=== PATIENT | female | born 1950 | race African-American/Black ===

== ENCOUNTER 2016-11-19 | Inpatient (IN) | payer MEDICARE ==
[~2016-11-19] MED LIST: ACETAMINOPHEN PO; ARISTOCORT A 0.15 GM TOP; CIPRO PO; DIAZEPAM PO; EFFEXOR XR PO; GLUCOTROL PO; LASIX PO; LIPITOR PO; MIRALAX255 GM PO; MOEXIPRIL HCL15 MG PO; SENNA S TABLET1 TAB PO; SEROQUEL PO; ZANTAC PO
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
--- NOTE | ~2016-11-19 | DS ---
Unit #: [id number] #: [id number] Patient: JANEY HARGROVE [id number] [place] [address] [id number] I MR#: [id number] NAME: JANEY HARGROVE ROOM: P123 Age: 66 Sex: F Admission Date: 11/19/2016 : 1950 Discharge Date: 11/20/2016 Attending Physician: Jesse Blanco M.D. Primary Care Physician: Deb Marcos M.D. DISCHARGE SUMMARY REASON FOR ADMISSION Ms. Hargrove is a 66-year-old woman with a history of depression and unknown psychosis who presented reporting increasing confusion and psychosis. Family reported that she had been acting erratically in the home and this behavior had started abruptly 3 days ago. She was admitted for further workup. DIAGNOSTIC STUDIES LABORATORY DATA: Please see hospital chart. HOSPITAL COURSE Patient was admitted and placed on psychosis precautions. Due to high falls risk she was placed originally on two-to-one precautions followed by one-to-one. Baseline laboratories were obtained which demonstrated the probable presence of a urinary tract infection and after she was seen by our medical records manager she was transferred to [facility] for medical evaluation. At that facility, it was decided that she required to be admitted to a medical floor for treatment, and she was discharged from this facility. 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 Depressive disorder NOS. AXIS II: No diagnosis. AXIS III: Hypertension Hyperlipidemia. Degenerative disc disease. Diabetes. INSTRUCTIONS TO PATIENT Patient followup with attending physician at [facility]. DISCHARGE MEDICATIONS None. CONDITION ON DISCHARGE Decompensated. PROGNOSIS Good. DIET AND ACTIVITY Per attending physician. Unit #: [id number] #: [id number] Patient: JANEY HARGROVE Dictated by... Jesse Blanco M.D. [facility]/dzh TD: 11/20/2016 22:01 JOB #: [id number] DISCHARGE SUMMARY Page 1 of 1 X Jesse Blanco MD X DISCHARGE SUMMARY
--- NOTE | ~2016-11-19 | HP ---
Unit #: [id number] #: [id number] Patient: JANEY BENTLEY [id number] [facility] [address] [place] [address] [id number] I MR#: [id number] NAME: JANEY BENTLEY ROOM: P123 Age: 66 Sex: F Admission Date: 11/19/2016 : 1950 Attending Physician: Jesse Blanco M.D. Admitting Physician: Jesse Blanco M.D. Primary Care Physician: Deb Marcos M.D. HISTORY AND PHYSICAL DATE OF ADMISSION 11/19/2016 NOTE Janey is a 66 year old admitted to [address] [place] [address]. She was admitted and discharged within the first 24 hours. She was not seen for an H & P. Dictated by... Jolene James P.A.-C. for Dario Trujillo/riley TD: 11/19/2016 20:41 JOB #: [id number] HISTORY AND PHYSICAL Page 1 of X Jolene James HISTORY AND PHYSICAL
[2016-11-19] MEDS ORDERED: DESYREL100 MG PO (23:08)
[2016-11-19] MEDS ORDERED: SEROQUEL300 M1 PO (23:09)
[2016-11-19] MEDS ORDERED: GLIPIZIDE10 MG PO (23:10)
[2016-11-19] MEDS ORDERED: LIPITOR40 MG PO (23:10)
[2016-11-19] MEDS ORDERED: MAALOX MAXIMUM355 ML PO (23:12)
[2016-11-19] MEDS ORDERED: ACETAMINOPHEN PO (23:14)
[2016-11-19] MEDS ORDERED: MILK OF MAGNESIA PO (23:14)
== END 2016-11-20 00:02 | disposition short-term general hospital (02) | DRG 885 ==
LOC: P1S 01:51
DX: F23 Brief psychotic disorder (principal); E11.8 Type 2 diabetes mellitus with unspecified complications; I10 Essential (primary) hypertension; F32.9 Major depressive disorder, single episode, unspecified; E78.5 Hyperlipidemia, unspecified; Z88.0 Allergy status to penicillin; Z88.1 Allergy status to other antibiotic agents; K21.9 Gastro-esophageal reflux disease without esophagitis; E78.00 Pure hypercholesterolemia, unspecified
CPT/HCPCS: 82947; J3486

== ENCOUNTER 2016-11-19 19:56 | Inpatient (IN) | payer MEDICARE ==
--- NOTE | ~2016-11-19 | CT71 ---
[facility] A Service of [facility] RADIOLOGY TEXT RESULTS PATIENT: JANEY BENTLEY LOCATION: [facility] 555 : [birth year] UNIT #: [id number] AGE: [address]: Angela Alfonso MD SEX: F ORDER DR: [id number] [facility] [address] [place], [place] [address] [id number] I MR#: [id number] Acc #: [id number] NAME: JANEY BENTLEY. : 1950 SEX: F STUDY DATE/TIME: 11/19/2016 22:44 UNIT: [facility] ROOM: [facility] STUDY DESCRIPTION: CT Head Wo Contrast Attending Physician: Angela Alfonso M.D. Referring Physician: Deb Marcos M.D. Ordering Physician: Tom Saab M.D. Primary Care Physician: Deb Marcos M.D. MEDICAL IMAGING REPORT This report is preliminary unless electronic signature is present EXAM CT head without contrast INDICATION Confusion and head pain today. PROCEDURE Unenhanced CT of the head. This CT exam was performed with one or more of the following radiation dose reduction techniques: Automatic exposure control, adjustment of mA and/or kV according to patient size and iterative reconstruction. COMPARISON 08/04/2007 FINDINGS There is no acute hemorrhage, abnormal mass effect, extraaxial fluid collection or hydrocephalus. Paranasal sinuses, mastoid air cells are clear. IMPRESSION No acute intracranial findings. Dictated by... Cristhian Pozo M.D. THIS IS AN ELECTRONICALLY VERIFIED REPORT Cristhian Pozo M.D. at 11/20/2016 9:57 PM KERI/maude TD: 11/20/2016 11:06 JOB #: [id number] [facility] A Service [facility] RADIOLOGY TEXT RESULTS PATIENT: JANEY BENTLEY LOCATION: [facility] 555 : [birth year] UNIT #: [id number] AGE: [address]: Angela Alfonso MD SEX: F ORDER DR: MEDICAL IMAGING REPORT Page 1 of 1 COPY
--- NOTE | ~2016-11-19 | DS ---
Unit #: [id number] #: [id number] Patient: JANEY HARGROVE [id number] [address] [address] [id number] I MR#: [id number] NAME: JANEY HARGROVE ROOM: 555 Age: 66 Sex: F Admission Date: 11/19/2016 : 1950 Discharge Date: 11/26/2016 Attending Physician: Rufina Pérez M.D. Referring Physician: Deb Marcos M.D. Primary Care Physician: Deb Marcos M.D. DISCHARGE SUMMARY PRIMARY CARE PROVIDER Deb Marcos M.D. PRINCIPAL DIAGNOSES 1. Escherichia coli urinary tract infection. 2. Toxic metabolic encephalopathy. 3. Acute on chronic psychosis secondary to urinary tract infection. 4. History of stroke with right hemiplegia. 5. Hyperlipidemia. 6. Diabetes mellitus type 2 with hemoglobin A1c of 6.1. 7. Degenerative joint disease. 8. Obesity morbid. 9. Vitamin B12 deficiency with a vitamin B12 level of 210. 10. Ascending aortic aneurysm measuring 4.5 cm. 11. Possible pulmonary hypertension. MISSION MANAGER Dr. Ohara, Psychiatry. PROCEDURES 1. Chest x-ray on 11/19/2016 with no acute findings. 2. CT head without contrast on 11/19/2016 with no acute intracranial abnormality. 3. CT of the chest without contrast on 11/22/2016 with ascending aortic aneurysm measuring 4.5 cm, enlargement of pulmonary artery is noted. CLINICAL HISTORY AND HOSPITAL COURSE Ms. Hargrove is a 66-year-old female, who was transferred [facility] after she was increasingly confused, combative, and falling. In the emergency department, she was found to have urinary tract infection, was admitted to our facility. The patient was placed on empiric antibiotics. Urine culture ultimately revealed E. coli. The patient has been changed to Macrobid. Her mental status has improved with treatment of her UTI. We will complete a course of antibiotics. Dr. Ohara has been consulted, because the patient became significantly psychotic with disorganized thinking. She required several doses of Cogentin and Haldol in addition to scheduled Vistaril and Seroquel. However, today her mental status is much improved. The patient was re-evaluated by Dr. Ohara. He does not feel she requires transfer to [facility] at this time. I spoke with the patient's daughter Unit #: [id number] #: [id number] Patient: JANEY HARGROVE and we are going to discharge her home on medications as outlined below. The patient was also seen by physical therapy and she is at her baseline. She is impulsive and seems forgetful with her physical limitations, but again she is monitored by her daughters often. DISCHARGE CONDITION Stable. DISCHARGE STATUS Discharged to home. DISCHARGE MEDICATIONS Vistaril 25 mg p.o. b.i.d., Macrobid 100 mg p.o. b.i.d. for another 3 days, Lipitor 40 mg at bedtime, Tylenol 650 mg p.o. q.4 hours p.r.n. for pain, Maalox 30 mL p.o. q.6 hours p.r.n. for tummy upset, trazodone 100 mg at bedtime, Seroquel 300 mg at bedtime, metoprolol tartrate 25 mg b.i.d. with one refill given, glipizide 10 mg b.i.d., vitamin B12 of 1000 mcg p.o. daily, which can be purchased over the counter. DISCHARGE INSTRUCTIONS The patient was instructed to follow heart healthy constant carb diet. She will continue Accu-Cheks a.c. and h.s. at home. She can increase her activity as tolerated. She is to use a walker at all times. FOLLOWUP The patient will follow up with her primary care provider in 1 to 2 weeks. Time spent on discharge 42 minutes. Dictated by... Rufina Pérez M.D. CORTNEY/luis TD: 11/28/2016 04:05 JOB #: [id number] DISCHARGE SUMMARY Page 1 of 1 X Rufina Pérez MD DISCHARGE SUMMARY
--- NOTE | ~2016-11-19 | CT57 ---
[facility] A Service of [facility] RADIOLOGY TEXT RESULTS PATIENT: JANEY BENTLEY LOCATION: B 555-01 : [birth year] UNIT #: [id number] AGE: [address]: Angela Alfonso MD SEX: F ORDER DR: [id number] [facility] [address] [place], [place] [address] [id number] I MR#: [id number] #: [id number] NAME: JANEY BENTLEY : 1950 SEX: F STUDY DATE/TIME: 11/22/2016 19:15 UNIT: C5B ROOM: [facility] STUDY DESCRIPTION: CT Chest Wo Cont Attending Physician: Angela Alfonso M.D. Referring Physician: Deb Marcos M.D. Ordering Physician: Basil Duncan M.D. Primary Care Physician: Deb Marcos M.D. MEDICAL IMAGING REPORT This report is preliminary unless electronic signature is present EXAM CT chest without contrast 11/22/2016 1915 hours CLINICAL HISTORY 66-year-old woman with cough, shortness of air for 3 days, chest pain. Possible aspiration pneumonia. COMPARISON Chest CT 09/11/2006 and chest x-ray 11/19/2016. TECHNIQUE Helical noncontrasted images were obtained from the lung apices through the adrenal glands. Sagittal and coronal reconstructions were performed. Total exam DLP 765 mGy-cm. This CT examination was performed with one or more of the following radiation dose reduction techniques: automatic exposure control, adjustment of mA and/or kV according to patient size, and iterative reconstruction. FINDINGS Images through the thoracic inlet demonstrate no thyroid mass or supraclavicular adenopathy. There is artifact related to the patient's right arm which is folded over the right upper chest likely from flexion contracture. There is ectasia of the ascending aorta measuring 4.5 cm previously 3.7 cm on 09/11/2006. Pulmonary arteries are enlarged which can be indicative of underlying pulmonary arterial hypertension. The descending thoracic aorta is mildly aneurysmal measuring 3.1 cm. There is no pathologic mediastinal, hilar or axillary adenopathy. Lung window images are degraded by respiratory motion artifact. There is no definite pneumonia or edema. There is a nodule in the right lower lobe on image 29. This is unchanged from 09/11/2006 and therefore likely benign. No effusions are seen. [facility] A Service of [facility] RADIOLOGY TEXT RESULTS PATIENT: JANEY BENTLEY LOCATION: [place] [address] : [birth year] UNIT #: [id number] AGE: [address]: Angela Alfonso MD SEX: F ORDER DR: Images through the upper abdomen demonstrate postoperative change of Lap-Band. There is no acute finding in the abdomen. IMPRESSION 1. The study is limited by respiratory motion and artifact from patient's arm over the right chest likely due to flexion contracture. 2. There is an ascending aortic aneurysm measuring up to 4.5 cm. The aorta was only mildly ectatic measuring 3.6 cm on 09/11/2006. Descending thoracic aorta is minimally aneurysmal measuring 3.1 cm. 3. Enlargement of the pulmonary arteries noted which can be associated with pulmonary arterial hypertension. 4. Respiratory motion degrades the images through the lungs. There is a stable vague nodule in the right lower lobe unchanged from 2006 and therefore benign. There is no evidence of pneumonia, edema or pleural effusion. Dictated by... Dominique Dumont M.D. THIS IS AN ELECTRONICALLY VERIFIED REPORT Dominique Dumont M.D. at 11/24/2016 9:03 AM FLORA/sal TD: 11/24/2016 06:50 JOB #: [id number] MEDICAL IMAGING REPORT Page 1 of 1 COPY
--- NOTE | ~2016-11-19 | CO ---
Unit #: [id number] #: [id number] Patient: JANEY HARGROVE [id number] [address] [place], [place] [address] [id number] I MR#: [id number] NAME: JANEY HARGROVE ROOM: 555 Age: 66 Sex: F Admission Date: 11/19/2016 : 1950 Attending Physician: Angela Alfonso M.D. Primary Care Physician: Deb Marcos M.D. Consultation Date: 11/20/2016 CONSULTATION REPORT REASON FOR CONSULTATION Psychosis, confusion. HISTORY OF PRESENT ILLNESS Ms. Janey Hargrove is a 66-year-old female, seen in room 555 on 11/20/2016 at [facility]. The patient was transferred from [facility] due to acute confusion. The patient was admitted on 11/19/2016 and transferred to [facility] for psychiatric stabilization. The patient has a history of previous admission in 2012 and diagnosed with psychosis not otherwise specified and depressive disorder. The patient diagnosed with UTI, toxic metabolic encephalopathy, moderately obese, agitated needing one-to-one monitoring, unable to provide a coherent information; needing Haldol 5 mg, Cogentin 1 mg, Ativan 1 mg IM. The patient's vital signs; temperature 98.6, pulse 85, respirations 16, blood pressure 104/76, and oxygen saturation 96%. PAST PSYCHIATRIC HISTORY Remarkable for history of previous treatment with psychotic episode in 2012, treated at [facility]. MEDICAL HISTORY History of seasonal allergy, degenerative joint disease, hypertension, AODM, hyperlipidemia, hysterectomy, Lap-Band, obesity. ALLERGIES Ibuprofen, aspirin, penicillin. MEDICATIONS At [facility], the patient was on Seroquel 300 mg at bedtime, Lipitor 40 mg at bedtime, glipizide 10 mg b.i.d., Maalox, trazodone 100 mg at bedtime. FAMILY HISTORY AND SOCIAL HISTORY Family history unavailable at this time. No known history of abuse. No history of any substance abuse. REVIEW OF SYSTEMS Complete review of system is unremarkable. MENTAL STATUS EXAMINATION General appearance; the patient is moderately obese, dressed casually in hospital attire, seemed somewhat anxious, nervous, agitated. Attention span and concentration, poor. Speech, poor articulation. Orientation in Unit #: [id number] #: [id number] Patient: JANEY HARGROVE self. Mood and affect, labile. Thought process, circumstantial. Thought content; guarded, paranoid, agitation, confusion. Recent and remote memory, poor. Language, unable to assess. Fund of knowledge, unable to assess. Insight and judgment, impaired. DIAGNOSES Psychiatric: Delirium, F05; psychosis, not otherwise specified, F29.0. Secondary diagnosis: Please refer to H and P. Stressors: Psychosocial stressor. ASSESSMENT/PLAN 1. Supportive psychotherapy and psychoeducation provided to the patient. 2. Educated about benefits and side effects of medication and course and prognosis of illness. 3. Advised to continue with current medication Seroquel 300 mg at bedtime, added haloperidol 2 mg b.i.d., Vistaril 25 mg t.i.d. We will continue to follow. If needed, consider further adjustment of medication. Please feel free to call if any questions, telephone #[phone]. Dictated by... Adin Ohara M.D. JAIME/luis TD: 11/21/2016 15:26 JOB #: [id number] CONSULTATION REPORT Page 1 of 1 X Adin Ohara MD CONSULTATION REPORT
--- NOTE | ~2016-11-19 | EKG ---
PATIENT: JANEY BENTLEY UNIT #: [id number] Ventricular Rate: 101 BPM Atrial Rate: 101 BPM P-R Interval: 134 ms QRS Duration: 86 ms Q-T Interval: 332 ms QTC Calculation(Bezet): 430 ms P [place]: 70 degrees Calculated R [place]: -27 degrees Calculated T [place]: 5 degrees Diagnosis Line: Sinus tachycardia with occasional Premature Diagnosis Line: ventricular complexes Diagnosis Line: Possible Left atrial enlargement Diagnosis Line: Left ventricular hypertrophy Diagnosis Line: Cannot rule out Septal infarct , age undetermined Diagnosis Line: ST and T wave abnormality, consider inferior Diagnosis Line: ischemia Diagnosis Line: Abnormal ECG Diagnosis Line: No previous ECGs available Diagnosis Line: Confirmed by SIXTO ANDERSON MD ([id number]) on Diagnosis Line: 11/21/2016 10:51:40 AM INTERPRETING MD: JUSTIN LANCE
--- NOTE | ~2016-11-19 | CO ---
Unit #: [id number] #: [id number] Patient: JANEY HARGROVE [id number] [place] [address] [facility]. [place], [place] [address] [id number] I MR#: [id number] NAME: JANEY HARGROVE ROOM: 555 Age: 66 Sex: F Admission Date: 11/19/2016 : 1950 Attending Physician: Rufina Pérez M.D. Primary Care Physician: Deb Marcos M.D. Consultation Date: 11/24/2016 CONSULTATION REPORT REASON FOR CONSULTATION Followup. DISCUSSION Ms. Dominique Hargrove is a 66-year-old female, seen in room 555, bed 1 on 11/24/2016 at [facility]. The patient is moderately obese, dressed casually, lying comfortably in a propped up position. The patient still having disorganized thought process, but no agitation. Alert and awake. Vital signs; temperature 98.0, pulse 71, respirations 18, blood pressure 138/77, and oxygen saturation 100%. REVIEW OF SYSTEMS Complete review of systems unremarkable. MENTAL STATUS EXAMINATION General appearance, the patient dressed casually. Attention span and concentration, poor. Speech, poor articulation. Orientation, unable to assess. Mood and affect, labile. Thought process, circumstantial. Thought content; guarded, but denied any thoughts of harming self or others. Recent and remote memory, poor. Language, poor. Fund of knowledge, poor. Insight and judgment, impaired. DIAGNOSES Psychiatric: 1. Psychosis, not otherwise specified, F29.0. 2. Rule out major neurocognitive disorder secondary to Alzheimer disease with behavioral disturbances, F02.81. ASSESSMENT AND PLAN Supportive psychotherapy and psychoeducation provided to the patient, but the patient unable to comprehend much. Advised to continue with current combination of medication. If needed, consider further adjustment of medication. Please feel free to call if any questions, telephone [phone]. Dictated by... Adin Ohara M.D. JAIME/luis TD: 11/24/2016 17:47 JOB #: [id number] Unit #: [id number] #: [id number] Patient: JANEY HARGROVE CONSULTATION REPORT Page 1 of 1 X Adin Ohara MD CONSULTATION REPORT
--- NOTE | ~2016-11-19 | CO ---
Unit #: [id number] #: [id number] Patient: JANEY HARGROVE [id number] [address] [place], [place] [address] [id number] I MR#: [id number] NAME: JANEY HARGROVE ROOM: 555 Age: 66 Sex: F Admission Date: 11/19/2016 : 1950 Attending Physician: Rufina Pérez M.D. Primary Care Physician: Deb Marcos M.D. Consultation Date: 11/25/2016 CONSULTATION REPORT DISCUSSION Janey Hargrove is a 66-year-old female, seen on 11/25/2016. The patient seen in room 555, bed 1 on 11/25/2016. The patient dressed casually, sitting comfortably in chair, eating her breakfast. The patient was able to answer questions, but speech disorganized. Guarded, paranoid, poor memory, but no agitation or thoughts of harming self or others. The patient's blood glucose was 107. The patient's vital signs; temperature 99.5, pulse 73, respirations 20, blood pressure 133/105, and oxygen saturation 96%. REVIEW OF SYSTEMS Complete review of system is unremarkable except as mentioned above. MENTAL STATUS EXAMINATION General appearance; the patient is moderately obese, dressed casually in hospital attire, sitting comfortably in chair. Attention span and concentration, poor. Speech, poor articulation. Orientation in self. Mood and affect, labile. Thought process, circumstantial. Thought content, guarded and paranoid, but denied any thoughts of harming self or others. Recent and remote memory, fair to slightly impaired. Language, fair. Fund of knowledge, poor. Insight and judgment, impaired. DIAGNOSES Psychiatric: Psychosis, not otherwise specified, F29.0; major neurocognitive disorder secondary to Alzheimer disease with behavioral disturbances, F02.81. ASSESSMENT AND PLAN 1. Supportive psychotherapy and psychoeducation provided to the patient. 2. Advised to continue with current medication. The patient does not require any inpatient psychiatric admission at this time, but recommending to follow up with home situation with the transition social worker, Ms. Houston is currently working to get some more information from family. Please feel free to call if any questions, telephone #[phone]. Continue with current medication. Dictated by... Dario Schneider/luis TD: 11/25/2016 17:35 JOB #: [id number] Unit #: [id number] #: [id number] Patient: JANEY HARGROVE CONSULTATION REPORT Page 1 of 1 X Adin Ohara MD X CONSULTATION REPORT
--- NOTE | ~2016-11-19 | CR72 ---
[facility] A Service of [facility] RADIOLOGY TEXT RESULTS PATIENT: JANEY BENTLEY LOCATION: [facility] 555-01 : [birth year] UNIT #: [id number] AGE: [address]: Angela Alfonso MD SEX: F ORDER DR: [id number] [facility] [address] [place], [place] [address] [id number] I MR#: [id number] Acc #: [id number] NAME: JANEY BENTLEY : 1950 SEX: F STUDY DATE/TIME: 11/19/2016 21:46 UNIT: [facility] ROOM: [facility] STUDY DESCRIPTION: CR Chest Single View Portable Attending Physician: Angela Alfonso M.D. Referring Physician: Deb Marcos M.D. Ordering Physician: Tom Saab M.D. Primary Care Physician: Deb Marcos M.D. MEDICAL IMAGING REPORT This report is preliminary unless electronic signature is present EXAM Portable chest 11/19/2016 HISTORY 66-year-old female with altered mental status, confusion, and shortness of air beginning today. COMPARISON Chest 12/11/2009 FINDINGS Frontal chest demonstrates clear lungs. No pleural effusion or pneumothorax. Heart size is upper limits. Mediastinum and pulmonary vasculature unremarkable. Gastric lap-band. IMPRESSION No acute cardiopulmonary findings. Dictated by... Rodrigo Mcknight M.D. THIS IS AN ELECTRONICALLY VERIFIED REPORT Rodrigo Mcknight M.D. at 11/20/2016 4:14 PM EDMOND/theodora TD: 11/20/2016 10:43 JOB #: [id number] MEDICAL IMAGING REPORT Page 1 of 1 COPY
--- NOTE | ~2016-11-19 | EKG ---
PATIENT: JANEY BENTLEY UNIT #: [id number] Ventricular Rate: 116 BPM Atrial Rate: 116 BPM P-R Interval: 142 ms QRS Duration: 82 ms Q-T Interval: 350 ms QTC Calculation(Bezet): 486 ms P [place]: 60 degrees Calculated R [place]: -19 degrees Calculated T [place]: 32 degrees Diagnosis Line: Sinus tachycardia with Premature supraventricular Diagnosis Line: complexes Diagnosis Line: Minimal voltage criteria for LVH, may be normal Diagnosis Line: variant Diagnosis Line: Borderline ECG Diagnosis Line: No previous ECGs available Diagnosis Line: Confirmed by SIXTO ANDERSON MD ([id number]) on Diagnosis Line: 11/21/2016 10:51:52 AM INTERPRETING MD: JSUTIN LANCE
--- NOTE | ~2016-11-19 | CO ---
Unit #: [id number] #: [id number] Patient: JANEY HARGROVE [id number] [address] [place], [place] [address] [id number] I MR#: [id number] NAME: JANEY HARGROVE ROOM: 555 Age: 66 Sex: F Admission Date: 11/19/2016 : 1950 Attending Physician: Rufina Pérez M.D. Primary Care Physician: Deb Marcos M.D. Consultation Date: 11/26/2016 CONSULTATION REPORT REASON FOR CONSULTATION Followup. DISCUSSION Ms. Janey Hargrove is a 66-year-old female, seen in room 555, bed 1 on 11/26/2016. The patient moderately obese, dressed casually, sitting comfortably in chair, pleasant, cooperative, able to answer questions, but still noticed to be having problem with speech and behavior. Thought process, paranoia. Problem with memory. The patient's vital signs; temperature 98.1, pulse 65, respirations 18, blood pressure 144/90, and oxygen saturation 99%. The patient was evaluated by Our and recommended to follow up on the outpatient basis. REVIEW OF SYSTEMS Complete review of systems is unremarkable. MENTAL STATUS EXAMINATION General appearance; the patient is moderately obese, dressed casually in hospital attire. Attention span and concentration, fair. Oriented in self and place. Mood and affect; labile, sad, dysphoric. Thought process, circumstantial. Thought content, guarded and paranoid. Recent and remote memory, poor. Language, intact. Fund of knowledge, fair to poor. Insight and judgment, fair to slightly impaired. DIAGNOSES 1. Major neurocognitive disorder secondary to Alzheimer disease with behavioral disturbances, F02.81. 2. Psychosis, not otherwise specified, F29.0. 3. Rule out schizophrenia, F20.0. ASSESSMENT/PLAN 1. Supportive psychotherapy and psychoeducation provided to the patient. 2. Educated about benefits and side effects of medication and course and prognosis of illness. 3. Recommending the patient to follow up in an outpatient program upon discharge. Please feel free to call if any questions, telephone #[phone]. Dictated by... Adin Ohara M.D. JAIME/luis IVY: 11/26/2016 14:57 Unit #: [id number] #: [id number] Patient: JANEY HARGROVE TD: 11/26/2016 15:50 JOB #: [id number] CONSULTATION REPORT Page 1 of 1 X Adin Ohara MD CONSULTATION REPORT
--- NOTE | ~2016-11-19 | CO ---
Unit #: [id number] #: [id number] Patient: JANEY HARGROVE [id number] [address] [place], [place] [address] [id number] I MR#: [id number] NAME: JANEY HARGROVE ROOM: 555 Age: 66 Sex: F Admission Date: 11/19/2016 : 1950 Attending Physician: Angela Alfonso M.D. Primary Care Physician: Deb Marcos M.D. Consultation Date: 11/23/2016 CONSULTATION REPORT REASON FOR CONSULTATION Followup. DISCUSSION Ms. Dominique Hargrove is a 66-year-old female, seen in room 555, bed 1 on 11/23/2016. The patient dressed casually in hospital attire, lying comfortably in bed. The patient is showing some improvement, decrease in agitation, improved mood, but still somewhat guarded. The patient is still having periods of aggression such as a kicking staff, pulling IV monitor. The patient's vital signs; temperature 98.5, pulse 99, respirations 26, blood pressure 158/88, and oxygen saturation 98%. The patient was in delirium state. At the time of admission, diagnosed with UTI, toxic metabolic encephalopathy. The patient is tolerating medication fairly well. Currently, on Seroquel 300 mg at bedtime, Haldol p.r.n., Desyrel 100 mg at bedtime. No side effects from medication. REVIEW OF SYSTEMS Complete review of systems is unremarkable except as mentioned above. MENTAL STATUS EXAMINATION VITAL SIGNS: Temperature 98.5, pulse 99, respirations 26, blood pressure 158/88, and oxygen saturation 98%. GENERAL APPEARANCE: The patient dressed casually, lying comfortably in bed. Attention span and concentration, poor. Speech, disorganized. Orientation in self. Mood and affect, labile. Thought process, circumstantial. Thought content, guarded, paranoid, mood lability. Recent and remote memory, poor. Language poor. Fund of knowledge, poor. Insight and judgment, impaired. DIAGNOSES Psychiatric: Delirium, F05; psychosis, not otherwise specified, F29.0; diagnosed with toxic metabolic encephalopathy. ASSESSMENT AND PLAN 1. Supportive psychotherapy and psychoeducation provided to the patient. 2. The patient unable to comprehended at this time. Advised to continue with current treatment and medication. If needed, consider further adjustment of medication. Please feel free to call if any questions, telephone #[phone]. Dictated by... Adin Ohara M.D. Unit #: [id number] #: [id number] Patient: JANEY HARGROVE JAIME/luis TD: 11/23/2016 14:29 JOB #: [id number] CONSULTATION REPORT Page 1 of 1 X Adin Ohara MD X CONSULTATION REPORT
--- NOTE | ~2016-11-19 | HP ---
Unit #: [id number] #: [id number] Patient: JANEY BENTLEY [id number] [address] [place], [place] [address] [id number] MR#: [id number] NAME: JANEY BENTLEY ROOM: 66566 Age: 66 Sex: F Admission Date: 11/19/2016 : 1950 Attending Physician: Kristi Salinas M.D. Referring Physician: Deb Marcos M.D. Primary Care Physician: Deb Marcos M.D. HISTORY AND PHYSICAL CHIEF COMPLAINT UTI and toxic metabolic encephalopathy. HISTORY This pleasant 66-year-old female with AODM, hyperlipidemia, history of depression with psychosis, was transferred to this facility from [facility] for altered mental status. Unfortunately details of the past 24 hours are unknown. The patient was admitted to [facility] within the past 24 hours from an unknown facility. Apparently this was for psychosis. [facility] she was confused, combative, fell x2 with increasing psychosis per their records. She therefore was sent to this facility for medical clearance and was found to have a urinary tract infection. She is awake, alert but does not speak to me. She does nod her head yes and no to some of my questions. In the ER she was given a g of Rocephin. She does nod that she has been experiencing dysuria. PAST MEDICAL HISTORY 1. Admission to [facility] in 2012 for depression and psychotic disorder with paranoia. 2. Seasonal allergies. 3. DJD. 4. History of hypertension, 5. AODM. 6. Hyperlipidemia. 7. Hysterectomy. 8. Lap band. ALLERGIES Ibuprofen, aspirin, and penicillin. HOME MEDICATIONS I have an MAR sent from [facility], which makes mention of trazodone 100 mg q.h.s.; Seroquel 300 mg q.h.s.; Lipitor 40 mg q.h.s.; glipizide 10 mg b.i.d.; Maalox; p.r.n. Tylenol; MOM. FAMILY HISTORY Unknown. There is some mention in old records that there is psychiatric disorder in the family. SOCIAL HISTORY Also unknown. Unit #: [id number] #: [id number] Patient: JANEY BENTLEY REVIEW OF SYSTEMS Impossible to obtain, as patient really will not answer my questions. PHYSICAL EXAMINATION GENERAL: Pleasant, obese, 66-year-old female who was awake and alert, nods her head yes and no to selected questions. VITAL SIGNS: Temperature 98.6, pulse 97, respirations 26, blood pressure 156/106, O2 saturations 96% on room air. HEENT: Eyes - slight asymmetry of the pupils, status post bilateral cataract extraction, extraocular muscles are full. Pharynx - patient refuses to open her mouth. NECK: Without adenopathy or thyromegaly. CHEST: Clear. CARDIAC: Normal S1 and S2. Very soft systolic murmur. ABDOMEN: Bowel sounds are present. Minimal abdominal tenderness. No definite hepatosplenomegaly or masses. EXTREMITIES: Minimal edema. Pedal pulses are diminished. No ulcers on the feet. NEUROLOGIC: Patient is awake, alert and she nods her head to selected questions. I believe her cranial nerves are intact except there is a very slight asymmetry of the pupils. She appears to have flexion contraction of the right upper extremity with spasticity, and nods her head yes that she did have a previous CVA. DIAGNOSTIC STUDIES LABORATORY STUDIES: Hematocrit is 39.1, normal white count and platelet count. SMA 12 - glucose 118. Urinalysis - positive leukocyte esterase and nitrates with 50 to 100 white cells, 4+ bacteria. Only a few squamous cells seen. IMAGING STUDIES: Head CT - no acute disease. Chest x-ray - no acute disease. CARDIOLOGY STUDIES: EKG - sinus tachycardia rate 101 with APCs, occasional PVC, nonspecific ST wave abnormalities, which in large part is due to artifact. ASSESSMENT 1. UTI with toxic metabolic encephalopathy. 2. Admission to [facility] within the past 24 hours for psychosis, details are unknown. 3. Questionable old CVA on exam as patient does has spasticity and flexion contractions of the right arm, she does nod her head that she did have an old stroke. Head CT shows no acute disease. 4. AODM. 5. Hyperlipidemia. PLANS 1. Antibiotics pending cultures. 2. IV fluids. 3. Change glipizide to sliding scale insulin. 4. DVT prophylaxis. 5. Check B12 and thyroid function test. 6. Psychiatry to see in the morning. Unit #: [id number] #: [id number] Patient: JANEY BENTLEY Dictated by Kristi Salinas M.D. AML/ts TD: 11/20/2016 04:58 JOB #: [id number] HISTORY AND PHYSICAL Page 1 of 1 X Kristi Salinas MD X HISTORY AND PHYSICAL
--- NOTE | ~2016-11-19 | CO ---
Unit #: [id number] #: [id number] Patient: JANEY HARGROVE [id number] [facility] [address] [facility]. [place], [place] [address] [id number] MR#: [id number] NAME: JANEY HARGROVE ROOM: 555 Age: 66 Sex: F Admission Date: 11/19/2016 : 1950 Attending Physician: Angela Alfonso M.D. Primary Care Physician: Deb Marcos M.D. Consultation Date: 11/21/2016 CONSULTATION REPORT DISCUSSION Janey Hargrove is a 66-year-old female, seen in room 555, bed 1, on 11/21/2016 at [facility]. The patient is compliant with medication, somewhat sleepy, drowsy, decrease in agitation. The patient is still confused, guarded and paranoid. Vital signs; temperature 97.6, pulse 97, respirations 20, blood pressure 123/64, and oxygen saturation 100%. The patient was unable to give any coherent information. REVIEW OF SYSTEMS Complete review of systems unremarkable. MENTAL STATUS EXAMINATION General appearance; the patient dressed casually in hospital attire, lying comfortably in bed. Attention span and concentration, poor. Speech slow. Oriented in self. Mood and affect, labile. Thought process, circumstantial. Thought content, guarded, paranoid, but denied any thoughts of harming self or others. Recent and remote memory, poor. Language, fair. Fund of knowledge, poor. Insight and judgment, impaired. DIAGNOSES Psychiatric: Delirium, F05; psychosis, not otherwise specified, F29.0. ASSESSMENT/PLAN Recommending at this time to continue with current medication and therapeutic protocol. If needed, consider further adjustment of medication. The patient has a history of psychotic disorder. We will continue to monitor closely. If needed, make further adjustment of medication. Dictated by... Dario Schneider/luis TD: 11/22/2016 03:37 JOB #: [id number] Unit #: [id number] #: [id number] Patient: JANEY HARGROVE CONSULTATION REPORT Page 1 of 1 X Adin Ohara MD CONSULTATION REPORT
--- NOTE | ~2016-11-19 | BMI ---
[facility] Nutrition Therapy DATE: 11/20/16 Patient: JANEY Aguayo MC Physician: ANDREE Address: [address] [place] [address] Room/Bed: [address] [place] [address], Zip: [place] [address] Admit Date: 11/19/16 Date of : [birth year] Height: Weight: 261 118.38 HIGH BMI NOTE: Admitting DX: Pt is a 66 y/o female amitted with a UTI and toxic metabolic encephalopathy. ANTHROPOMETRICS: HT:63" WT:261# BMI:46.2 IBW:115# %IBW:227% DIET: CCD RECOMMENDATIONS: Continue pt on a CC diet to promote gradual weight loss towards a healthy BMI (19.0-25.0) or +/- 10% IBW. Respectfully, Olga Zhang, MS, RD, LD Terese Dasilva, Vp [employer] [facility] [employer] cc: client file
[2016-11-19 22:12] LABS: URINE SOURCE CATH
[2016-11-19 22:18] LABS: URINE APPEARANCE CLOUDY; URINE BILIRUBIN NEG (NEG); URINE BLOOD NEG (NEG); URINE COLOR YELLOW; URINE GLUCOSE NEG (NEG); URINE KETONE NEG (NEG); URINE LEUKOCYTE ESTERASE 3+ (NEG); URINE NITRATE POS (NEG); URINE PROTEIN NEG (NEG); URINE SPECIFIC GRAVITY 1.012 (1.003-1.035)
[2016-11-19 22:20] LABS: CULTURE INDICATED? YES; URINE BACTERIA AUWI 4+ (NEGATIVE); URINE SQUAMOUS EPITHELIAL CELL FEW /[HPF]; UWBCS1 AUWI 50-100 (0-5)
[2016-11-19 22:32] LABS: U HYALINE CASTS AUWI 0-2 /[LPF]
[2016-11-19 22:39] LABS: BASOPHIL# 0.1 X10e3 (0-0.3); BASOPHIL% 0.7 % (0-2.5); DIFF IND NO; EOSINOPHIL# 0.1 X10e3 (0-0.7); EOSINOPHIL% 0.7 % (0.0-7.0); HEMATOCRIT 39.1 % (35.0-45.0); HEMOGLOBIN 12.7 gm/dL (12.0-16.0); LYMPHOCYTE# 2.2 X10e3 (1.0-3.5); LYMPHOCYTE% 23.1 % (17.0-45.0); MEAN CORPUSCULAR HEMOGLOBIN 27.3 PG (28-34); MEAN CORPUSCULAR HGB CONC 32.5 g/dL (30-36); MEAN PLATELET VOLUME 9.4 FL (6.5-11.5); MONOCYTE# 0.8 X10e3 (0-1.0); MONOCYTE% 8.8 % (3.0-12.0); NEUTROPHIL# 6.3 X10e3 (1.5-7.1); NEUTROPHIL% 66.7 % (40-75); PLATELET COUNT 249 X10e3 (140-420); RED BLOOD COUNT 4.65 X10e (3.90-5.30); RED CELL DISTRIBUTION WIDTH 14.7 % (11.0-15.5); WHITE BLOOD COUNT 9.5 X10e3 (4.0-10.5)
[2016-11-19 22:57] LABS: ALBUMIN SERUM 4.4 g/dL (3.5-5.0); BILIRUBIN, DIRECT 0.2 mg/dL (0.0-0.2); BILIRUBIN,INDIRECT 0.4 mg/dL (0.0-0.9); BILIRUBIN,TOTAL 0.6 mg/dL (0.2-2.0); CALCIUM SERUM 9.1 mg/dL (8.4-10.2); CREATININE SERUM 0.8 mg/dL (0.6-1.4); GLOM FILT RATE Estimated 88.5 mL/min (>60); POTASSIUM 3.5 mmol/L (3.5-5.1); PROTEIN TOTAL SERUM 7.7 g/dL (6.0-8.3)
[2016-11-19] MEDS ORDERED: DESYREL100 MG PO (23:08)
[2016-11-19] MEDS ORDERED: SEROQUEL300 M1 PO (23:09)
[2016-11-19] MEDS ORDERED: LIPITOR40 MG PO (23:10)
[2016-11-19] MEDS ORDERED: GLIPIZIDE10 MG PO (23:10)
[2016-11-19] MEDS ORDERED: MAALOX MAXIMUM355 ML PO (23:12)
[2016-11-19] MEDS ORDERED: ACETAMINOPHEN PO (23:14)
[2016-11-19] MEDS ORDERED: MILK OF MAGNESIA PO (23:14)
[2016-11-20 07:42] LABS: BASOPHIL# 0.1 X10e3 (0-0.3); BASOPHIL% 0.8 % (0-2.5); EOSINOPHIL# 0.1 X10e3 (0-0.7); EOSINOPHIL% 1.4 % (0.0-7.0); HEMATOCRIT 35.3 % (35.0-45.0); HEMOGLOBIN 11.6 gm/dL (12.0-16.0); LYMPHOCYTE# 2.7 X10e3 (1.0-3.5); LYMPHOCYTE% 31.6 % (17.0-45.0); MEAN CORPUSCULAR HEMOGLOBIN 27.5 PG (28-34); MEAN CORPUSCULAR HGB CONC 32.8 g/dL (30-36); MEAN PLATELET VOLUME 8.8 FL (6.5-11.5); MONOCYTE# 0.9 X10e3 (0-1.0); MONOCYTE% 10.5 % (3.0-12.0); NEUTROPHIL# 4.7 X10e3 (1.5-7.1); NEUTROPHIL% 55.7 % (40-75); PLATELET COUNT 210 X10e3 (140-420); RED BLOOD COUNT 4.21 X10e (3.90-5.30); RED CELL DISTRIBUTION WIDTH 14.7 % (11.0-15.5); WHITE BLOOD COUNT 8.5 X10e3 (4.0-10.5)
[2016-11-20 07:54] LABS: DIFF IND NO
[2016-11-20 08:04] LABS: BUN/CREATININE RATIO 12.85; CALCIUM SERUM 8.7 mg/dL (8.4-10.2); CREATININE SERUM 0.7 mg/dL (0.6-1.4); GLOM FILT RATE Estimated 103.9 mL/min (>60); POTASSIUM 3.4 mmol/L (3.5-5.1)
[2016-11-20 08:29] LABS: THYROID STIMULATING HORMONE 1.87 uIU/ml (0.34-5.60)
[2016-11-20 08:36] LABS: FREE THYROXIN (T4) 1.09 ng/dL (0.58-1.64)
[2016-11-21 06:30] LABS: HEMOGLOBIN 11.2 gm/dL (12.0-16.0); MEAN CELL VOLUME 85.7 FL (83-96); MEAN CORPUSCULAR HEMOGLOBIN 27.4 PG (28-34); MEAN PLATELET VOLUME 9.3 FL (6.5-11.5); RED BLOOD COUNT 4.09 X10e (3.90-5.30); RED CELL DISTRIBUTION WIDTH 14.8 % (11.0-15.5); WHITE BLOOD COUNT 7.1 X10e3 (4.0-10.5)
[2016-11-21 07:31] LABS: CALCIUM SERUM 8.7 mg/dL (8.4-10.2); CREATININE SERUM 0.7 mg/dL (0.6-1.4); GLOM FILT RATE Estimated 103.9 mL/min (>60); POTASSIUM 3.7 mmol/L (3.5-5.1)
[2016-11-23 05:40] LABS: HEMATOCRIT 35.5 % (35.0-45.0); HEMOGLOBIN 11.5 gm/dL (12.0-16.0); MEAN CELL VOLUME 84.2 FL (83-96); MEAN CORPUSCULAR HEMOGLOBIN 27.3 PG (28-34); MEAN CORPUSCULAR HGB CONC 32.4 g/dL (30-36); MEAN PLATELET VOLUME 9.7 FL (6.5-11.5); RED BLOOD COUNT 4.21 X10e (3.90-5.30); RED CELL DISTRIBUTION WIDTH 14.7 % (11.0-15.5); WHITE BLOOD COUNT 6.6 X10e3 (4.0-10.5)
[2016-11-23 06:27] LABS: BUN/CREATININE RATIO 7.14; CALCIUM SERUM 8.9 mg/dL (8.4-10.2); CREATININE SERUM 0.7 mg/dL (0.6-1.4); GLOM FILT RATE Estimated 103.9 mL/min (>60); POTASSIUM 3.4 mmol/L (3.5-5.1)
[2016-11-24 06:31] LABS: HEMATOCRIT 35.8 % (35.0-45.0); HEMOGLOBIN 11.7 gm/dL (12.0-16.0); MEAN CELL VOLUME 84.2 FL (83-96); MEAN CORPUSCULAR HEMOGLOBIN 27.5 PG (28-34); MEAN CORPUSCULAR HGB CONC 32.6 g/dL (30-36); MEAN PLATELET VOLUME 9.9 FL (6.5-11.5); RED BLOOD COUNT 4.25 X10e (3.90-5.30)
[2016-11-24 07:07] LABS: BUN/CREATININE RATIO 8.57; CALCIUM SERUM 9.3 mg/dL (8.4-10.2); CREATININE SERUM 0.7 mg/dL (0.6-1.4); GLOM FILT RATE Estimated 103.9 mL/min (>60); POTASSIUM 3.5 mmol/L (3.5-5.1)
[2016-11-25] MEDS ORDERED: VISTARIL PO (09:45)
[2016-11-25] MEDS ORDERED: LOPRESSOR PO (09:46)
[2016-11-25] MEDS ORDERED: MACROBID100 MG PO (09:47)
[2016-11-25] MEDS ORDERED: CYANOCOBALAM1000 MCG PO (09:48)
== END 2016-11-26 16:12 | disposition home or self-care (01) | DRG 689 ==
LOC: CED 19:56 → CEDOF 23:30 → C5C 11-20 08:00 → C5B 11-20 08:24
PROVIDERS: Emergency Medicine; Family Medicine; Internal Medicine
DX: N39.0 Urinary tract infection, site not specified (principal); G92 Toxic encephalopathy; I69.351 Hemiplegia and hemiparesis following cerebral infarction affecting right dominant side; I27.2 Other secondary pulmonary hypertension; E66.01 Morbid (severe) obesity due to excess calories; F23 Brief psychotic disorder; B96.20 Unspecified Escherichia coli [E. coli] as the cause of diseases classified elsewhere; I10 Essential (primary) hypertension; E11.9 Type 2 diabetes mellitus without complications; E53.8 Deficiency of other specified B group vitamins; E78.5 Hyperlipidemia, unspecified; I71.4 Abdominal aortic aneurysm, without rupture; Z90.710 Acquired absence of both cervix and uterus; Z81.8 Family history of other mental and behavioral disorders; Z88.0 Allergy status to penicillin; Z88.6 Allergy status to analgesic agent; Z98.84 Bariatric surgery status
CPT/HCPCS: 36415; 70450; 71010; 71250; 80048; 80076; 81003; 82607; 82947; 83036; 84439; 84443; 85025; 85027; 87086; 87088; 87186; 92526; 92610; 93005; 97162; 99285; G8978-GP; G8979-GP; G8980-GP; G8996-GN; G8997-GN; G8998-GN; J0360; J0515; J0696; J1200; J1630; J1650; J1815; J2060; J3420; J3490